=== PATIENT | female | born 1980 | race Caucasian/White ===

== ENCOUNTER 2024-01-18 10:37 | Emergency (ER) | payer OTHER, SELFPAY ==
[2024-01-18 10:39] VITALS: BP 144/88
[2024-01-18 11:13] VITALS: BMI 34.0
--- NOTE | 2024-01-18 11:23 | ED.MUSCINJ ---
HPI-Injury
General
Chief Complaint: Musculo-Skeletal Complaint
Source: patient and family (Father at bedside)
Exam Limitations: none
Time Seen by Provider: 01/18/24 10:55
Nursing documentation reviewed up to this point in time: agreed with
History of Present Illness-Injury
Initial Injury comments:
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 No recollection of overuse or injury. She has been taking ibuprofen and Tylenol
together, last dose was at 6:45 AM. Pain was 02/27 and now it is 07/30.
Past History
Past History
ED Past Medical History: CVA and Hypercholesterolemia
ED Past Surgical History: Orthopedic
Social History
Tobacco: Non-smoker
Alcohol: None
Personal: Single
Living: with family
Employment: Not employed
Review of Systems
Review of Systems
Allergies reviewed?: Yes
All Other Systems: ROS reviewed and negative except as documented in HPI and ROS
Constitutional: Denies fever
Respiratory: Denies trouble breathing
Cardiac: Denies chest pain
ABD/GI: Denies abdominal pain
Musculoskeletal: Reports other (pain right shoulder, no recollection of overuse or injury. Chronic left arm weakness post CVA)
Skin: Reports no symptoms
Neurological: Reports no symptoms
Phy Exam
Physical Exam
Physical Exam:
GENERAL: No acute distress. A&Ox3.
CONSTITUTIONAL: Afebrile.
RESPIRATORY: Regular respirations, nonlabored, lungs clear.
CARDIOVASCULAR: Regular rate and rhythm, no murmurs, no rubs.
GI: Soft, nontender, normal BS
MUSCULOSKELETAL: Neck nontender. Point tender anterior humeral head palpation here immediately reproduces the pain. Rest of shoulder nontender. Has full ROM with aggravation of pain mainly with abduction to 120 degrees. Adduction, extension does
not provoke pain. Moves with ease. Well perfused.
SKIN: Warm, dry, pink
PSYCH: Normal mood and affect. Well kept, interactive and appropriate
NEUROLOGIC: Awake, alert and oriented. No focal neurological deficits
Injury Course
Orders/Labs/Results
Orders:
Orders
01/18/24 10:55
Shoulder, Right 2 Views [CR Shoulder - Right Min 2 View] Urgent
Comment:
Reason For Exam: pain, no hx trauma
MDM/Problems Addressed
Differential Diagnosis Includes:
bursitis, calcific bursitis/tendinitis
MDM/Problems Addressed:
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 No recollection of overuse or injury. She has been taking ibuprofen and Tylenol
together, last dose was at 6:45 AM. Pain was 8/10 and now it is 1/10.
Point tender anterior humeral head. Rest of shoulder nontender. Has full ROM with aggravation of pain mainly with abduction to 120 degrees.
X-ray left shoulder: No acute osseous abnormality, soft tissue calcification about the head of the proximal humerus suggesting calcific tendinitis and/or bursitis.
Picture provided to pt.
Referred to orthopedics
*Critical Care Note
Total Time (30-74mins, 75-104mins- exclusive of procedures): Not Applicable
ED Attending Note
-
Portions of this chart may have been created with voice recognition software.� Occasional wrong word or��sound alike� substitutions may have occurred due to the inherent limitations of voice recognition software.
Discharge Plan
Departure
Patient Disposition: Home (Routine Discharge)
Date of Disposition: 01/18/24
Time of Disposition: 12:19
Patient with high blood pressure during this ER visit?: No
Condition: Good
Discharge Problem:
Calcific tendinitis
Instructions: Calcific Tendinopathy of the Shoulder (DC)
Prescriptions:
New
prednisone 20 mg tablet
40 mg PO DAILY Qty: 10 0RF
Referrals:
Jessica Ashford DO [Active] - Call in 1-3 days for appt
Kacy Chisholm, [Family Provider] -
Activity Restrictions/Additional Instructions:
As we discussed, continue the Ibuprofen and Tylenol.
I sent a prescription to your pharmacy for Prednisone 40 mg daily for 5 days
See the orthopedic doctor within the next 2 weeks.
Warm compress/heating pad may help.
Interventions
Interventions:
*Risk Screen - Suicide Last Done: 01/18/24 11:13
*General Assessment Last Done: 01/18/24 11:13
*Neglect/Abuse Screening Last Done: 01/18/24 11:13
*Nursing Disposition Last Done: 01/18/24 12:32
ED-Musculoskeletal Assessment Last Done: 01/18/24 11:13
Discharge Date and Time
Discharge Date/Time: 01/18/24 12:33
Print Language: [id number]
== END 2024-01-18 12:33 | disposition home or self-care (01) ==
LOC: EMR 10:37
PROVIDERS: EMERGENCY PHYSICIAN Student in an Organized Health Care Education/Training Program; FAMILY PHYSICIAN Family Medicine
DX: M65.221 Calcific tendinitis, right upper arm (principal); E78.00 Pure hypercholesterolemia, unspecified
CPT/HCPCS: 99283; 73030